=== PATIENT | male | born 1985 | race Two or more races ===

== ENCOUNTER 2017-03-01 17:21 | Emergency (ER) | payer OTHER ==
[~2017-03-01] VITALS: Ht 180.3 cm; Wt 63.5 kg
[2017-03-01] MEDS ORDERED: ALLEGRA-D 24 H1 EACH PO (20:15)
== END 2017-03-01 20:52 | disposition home or self-care (01) ==
LOC: ER 17:21
DX: H83.8X2 Other specified diseases of left inner ear (principal)

== ENCOUNTER 2017-03-05 11:44 | Outpatient (CLI) | payer OTHER ==
[~2017-03-05] VITALS: Ht 152.4 cm; Wt 63.5 kg
[~2017-03-05 11:44] MED LIST: ALLEGRA-D 24 H1 EACH PO
== END 2017-03-05 12:00 | disposition home or self-care (01) ==
LOC: OFIC 805 11:44
DX: H83.8X2 Other specified diseases of left inner ear (principal); J31.0 Chronic rhinitis; J34.2 Deviated nasal septum; J32.8 Other chronic sinusitis; R51 Headache; H90.42 Sensorineural hearing loss, unilateral, left ear, with unrestricted hearing on the contralateral side; H69.82 Other specified disorders of Eustachian tube, left ear